=== PATIENT | female | born 1975 ===

== ENCOUNTER 2016-09-23 08:17 | Emergency (ER) | payer OTHER ==
[2016-09-23 08:28] VITALS: BMI 32.0
[2016-09-23 08:38] VITALS: BP 109/77; PULSE 77; TEMP 98.2; O2SAT 99
--- NOTE | 2016-09-23 08:52 | C.PDOC ---
History Of Present Illness Patient is a 41 y/o female that presents to the ED for evaluation of intermittent left sided headache for the last 4 days. Pt states headache radiates from behind the left eye to posterior aspect of head, and also radiates to left side of neck. Patient states headache is 6/10 in severity and is described as pulling sensation. Otherwise, denies any photophobia, change in vision, extremity numbness, weakness, fever, chills, nausea, vomiting, shortness of breath, chest pain, or any other associated symptoms at this time. Chief Complaint (Nursing): Headache History Per: Patient History/Exam Limitations: no limitations Onset/Duration Of Symptoms: Days (4) Current Symptoms Are (Timing): Still Present Severity: Moderate Pain Scale Rating Of: 6 Quality: Aching Preceeding Symptoms: None. denies: Visual Disturbances, Known Migraine Symptoms Associated Symptoms: denies: Photophobia, Blurred Vision, Nausea, Vomiting, Extremity Weakness Recent travel outside of the [place]: No Additional History Per: Patient Past Medical History Reviewed: Historical Data, Nursing Documentation, Vital Signs Vital Signs: Last Vital Signs Temp 98.2 F 09/23/16 08:28 Pulse 77 09/23/16 08:28 Resp 18 09/23/16 09:48 BP 109/77 09/23/16 08:28 Pulse Ox 99 09/24/16 15:37 - Medical History PMH: Asthma Family History: States: Unknown Family Hx - Social History Hx Alcohol Use: No Hx Substance Use: No - Immunization History Hx Tetanus Toxoid Vaccination: No Hx Influenza Vaccination: No Hx Pneumococcal Vaccination: No Review Of Systems Except As Marked, All Systems Reviewed And Found Negative. Constitutional: Negative for: Fever, Chills Cardiovascular: Negative for: Chest Pain, Palpitations Respiratory: Negative for: Cough, Shortness of Breath Gastrointestinal: Negative for: Nausea, Vomiting, Abdominal Pain Neurological: Positive for: Headache. Negative for: Weakness, Numbness, Dizziness Physical Exam - Physical Exam Appears: Non-toxic, No Acute Distress Skin: Normal Color, Warm, Dry Head: Atraumatic, Normacephalic Eye(s): bilateral: Normal Inspection, EOMI Neck: Normal ROM, No Midline Cervical Tenderness, No Paracervical Tenderness, Supple Chest: Symmetrical Cardiovascular: Rhythm Regular Respiratory: Normal Breath Sounds, No Rales, No Rhonchi, No Wheezing Gastrointestinal/Abdominal: Soft, No Tenderness Extremity: Normal ROM Neurological/Psych: Oriented x3, Normal Speech, Normal Cognition, Normal Cranial Nerves, Normal Motor, Normal Sensation, Normal Reflexes, Other (Normal coordination) Gait: Steady ED Course And Treatment O2 Sat by Pulse Oximetry: 99 (on RA) Pulse Ox Interpretation: Normal Progress Note: Patient was offered muscle relaxer in the ER but declined. Patient was treated with Motrin and Tylenol. Patient left from ER prior to discharge. Disposition - Disposition Disposition: ELOPEMENT - ER ONLY Disposition Time: 09:30 Condition: STABLE - Clinical Impression Clinical Impression: Headache - Scribe Statement The provider has reviewed the documentation as recorded by the Fran Crews Provider Attestation: All medical record entries made by the Fran were at my direction and personally dictated by me. I have reviewed the chart and agree that the record accurately reflects my personal performance of the history, physical exam, medical decision making, and the department course for this patient. I have also personally directed, reviewed, and agree with the discharge instructions and disposition.
[2016-09-23 09:50] VITALS: RESP 18
== END 2016-09-23 09:50 | disposition left against medical advice (07) ==
LOC: C.ER 08:17
DX: R51 Headache (principal)